=== PATIENT | female | born 1985 | race Caucasian/White ===

== ENCOUNTER 2017-05-02 04:42 | Emergency (ER) | payer MEDICAID ==
[~2017-05-02] VITALS: Ht 165.1 cm; Wt 49.9 kg
--- NOTE | 2017-05-02 05:00 | NUR ---
Patient BIB [id number] for drug abuse. Patient was described as being in a tree in a private residence, the residents called the police, and voluntarily exited the tree for police without injury. Patient arrives A/O x3, rambling with erratic speech and statements, cooperative with staff. To room 4B.
--- NOTE | 2017-05-02 05:20 | NUR ---
ERMD at bedside for MSE.
[2017-05-02] MEDS ORDERED: diphenhydrAMINE 25 MG/10 ML UDC PO ONE (05:30)
[2017-05-02] MEDS ORDERED: OLANZAPINE 5 MG TABLET PO ONE (05:30)
[2017-05-02] MEDS ORDERED: diphenhydrAMINE 25 MG CAP PO ONE (05:51)
[2017-05-02] MEDS ORDERED: OLANZAPINE 5 MG TABLET ONE ×2 (05:51→05:54)
[2017-05-02 06:20] LABS: BASOPHILS # (AUTO) 0.2 K/uL (0.0-8.0); BASOPHILS % (AUTO) 1.6 % (0.0-2.0); EOSINOPHILS % (AUTO) 0.2 % (0.0-7.0); HEMATOCRIT 41.8 % (37-47); HEMOGLOBIN 13.9 G/DL (12.0-16.0); LYMPHOCYTES # (AUTO) 1.8 K/UL (0.8-4.8); LYMPHOCYTES % (AUTO) 16.7 % (20.5-51.5); MEAN CORPUSCULAR HGB CONC 33 g/dL (32.0-37.0); MONOCYTES # (AUTO) 0.7 K/UL (0.1-1.30); MONOCYTES % (AUTO) 6.2 % (0.0-11.0); NEUTROPHILS # (AUTO) 7.9 K/UL (1.8-8.9); NEUTROPHILS % (AUTO) 75.3 % (38.5-71.5); PLATELET COUNT (AUTO) 254 K/UL (150-450); WHITE BLOOD COUNT (AUTO) 10.6 K/UL (4.0-11.2)
[2017-05-02 06:38] LABS: ALANINE AMINOTRANSFERASE 34 U/L (14-59); ALKALINE PHOSPHATASE 57 U/L (50-136); ASPARTATE AMINOTRANSFERASE 43 U/L (15-37); BILIRUBIN,DIRECT 0.2 mg/dL (0.0-0.2); BILIRUBIN,TOTAL 1.2 mg/dL (0.2-1.0); CARBON DIOXIDE 25 mmol/L (21-32); CHLORIDE 103 mmol/L (98-107); CREATININE 0.8 mg/dL (0.6-1.3); GLUCOSE 86 mg/dL (74-106); POTASSIUM 3.5 mmol/L (3.5-5.1); TOTAL PROTEIN, SERUM 7.9 g/dL (6.4-8.2); UREA NITROGEN, BLOOD 16 mg/dL (7-18)
[2017-05-02 06:39] LABS: BILIRUBIN,TOTAL 1.2 mg/dL (0.2-1.0); CREATININE 0.8 mg/dL (0.6-1.3); POTASSIUM 3.5 mmol/L (3.5-5.1); TOTAL PROTEIN, SERUM 7.8 g/dL (6.4-8.2)
[2017-05-02 06:51] LABS: ACETAMINOPHEN < 2.0 ug/mL (10-30)
--- NOTE | 2017-05-02 07:03 | NUR ---
Recieved Pt in bed. Pt is lethergic but arousbale.
[2017-05-02 07:09] LABS: ETHANOL < 3 MG/DL (0-0)
--- NOTE | 2017-05-02 07:53 | NUR ---
Per Dr Fajardo order called PET study specialist, Ayla Hutson, ETA 1 hour.
--- NOTE | 2017-05-02 08:51 | NUR ---
Patient is resting comfortably in bed with eyes closed, 1 to 1 at the bedside.
--- NOTE | 2017-05-02 09:53 | NUR ---
Benedicto Hutson from PET at the bedside for psych eval.
--- NOTE | 2017-05-02 10:15 | NUR ---
Patient eloped from facility. ER physician notified.
--- NOTE | 2017-05-02 10:15 | NUR ---
Pt seen running out of the back door of the Emergency Room, Shani Patton called. Dr. Fajardo, nursing customer complaint service supervisor and shani patton team here and aware of the situation. Benedicto Hutson had just evaluated the pt and states he did not feel the pt was a danger to herself or others. Incindent reported to [employer] floater operator#[id number].
== END 2017-05-02 10:31 | disposition left against medical advice (07) ==
LOC: ER 04:48
DX: F29 Unspecified psychosis not due to a substance or known physiological condition (principal); F15.10 Other stimulant abuse, uncomplicated
CPT/HCPCS: 36415; 84703; 85025; A4663; G0480; G0480-TC; Q0163